=== PATIENT | male | born 1985 | race African-American/Black ===

== ENCOUNTER 2019-01-04 13:02 | Inpatient (IN) ==
[2019-01-04] MEDS ORDERED: ALPRAZolam 0.5 MG TABLET PO ONE (13:41)
[2019-01-04 13:46] LABS: Bilirubin,Urine Negative (Negative); Blood,Urine Negative (Negative); Clarity,Urine Cloudy (Clear); Color,Urine Yellow (Yellow); Glucose,Urine (UA) Normal (Normal); Ketones,Urine Negative (Negative); Leukocyte Esterase,Urine Small (Negative); Nitrite,Urine Negative (Negative); Protein,Urine Negative (Neg-Trace); Specific Gravity,Urine 1.026 (1.010-1.025); Urobilinogen,Urine Normal (Normal)
[2019-01-04 13:48] LABS: Bacteria,Urine None Seen per hpf (None-Few); Hyaline Casts,Urine Few per lpf (None-Few); Squamous Epithelial Cell,Urine Many per lpf (None-Few)
[2019-01-04 13:53] LABS: Basophils % 0.4 %; Eosinophils # 0.1 K/mcL (0.0-0.6); Eosinophils % 2.2 %; Hematocrit 46.4 % (37.5-50.1); Hemoglobin 15.6 g/dL (12.9-16.9); Immature Granulocytes % 0.2 % (0-4); Lymphocytes # 1.9 K/mcL (0.6-4.6); Lymphocytes % 33.6 %; Mean Corpuscular HGB Conc 33.6 g/dL (31.6-35.5); Mean Corpuscular Hemoglobin 30.4 pg (28.0-33.3); Mean Corpuscular Volume 90.3 fL (83.0-100.0); Mean Platelet Volume 9.5 fL (9.4-12.4); Monocytes # 0.4 K/mcL (0.0-1.3); Monocytes % 7.1 %; Neutrophils # 3.1 K/mcL (1.6-8.9); Platelet Count 225 K/mcL (140-400); Red Blood Count 5.14 M/mcL (4.19-5.50); Red Cell Distribution Width 11.9 % (11.5-14.5); Segmented Neutrophils % 56.5 %; White Blood Count 5.5 K/mcL (4.3-11.1)
[2019-01-04 13:57] LABS: Amphetamine Screen,Urine Negative ng/mL (Cutoff=1000); Barbiturate Screen,Urine Negative ng/mL (Cutoff=200); Benzodiazepines Screen,Urine Negative ng/mL (Cutoff=200); Cannabinoid Screen,Urine Negative ng/mL (Cutoff = 50); Cocaine Screen,Urine Negative ng/mL (Cutoff= 300); Opiate Screen,Urine Negative ng/mL (Cutoff=300); Phencyclidine Screen,Urine Negative ng/mL (Cutoff=25)
[2019-01-04 14:13] LABS: Acetaminophen < 10 mcg/mL (10-20); BUN/Creatinine Ratio 17 (6-26); Blood Urea Nitrogen 17 mg/dL (6-20); Calcium 9.8 mg/dL (8.6-10.3); Carbon Dioxide 27 mEq/L (23-29); Chloride 104 mEq/L (98-107); Ethanol < 10 mg/dL (Less than 10); Glucose 88 mg/dL (70-105); Osmolality,Calculated 291 (280-300); Potassium 3.9 mEq/L (3.5-5.1); Salicylate < 2.5 mg/dL (15.0-30.0); Sodium 140 mEq/L (136-145); eGFR For African Americans > 60 (> 60); eGFR For Non-African Americans > 60 (> 60)
[2019-01-04] MEDS ORDERED: Haloperidol Lactate 5 MG/ML VIAL IM PRN (16:29)
[2019-01-04] MEDS ORDERED: Mag Hydrox/Al Hydrox/Simeth 30 ML UDC PO PRN (16:29)
[2019-01-04] MEDS ORDERED: *HR* LORazepam 2 MG/ML VIAL IM PRN (16:29)
[2019-01-04] MEDS ORDERED: Acetaminophen 325 MG TABLET PO PRN (16:29)
[2019-01-04] MEDS ORDERED: *HR* LORazepam 1 MG TABLET PO PRN (16:29)
[2019-01-04] MEDS ORDERED: MOM Conc 10 ML UD.LIQ PO PRN (16:29)
[2019-01-04] MEDS: Nicotine 21 MG PATCH.TD24 TD SCH (17:55)
[2019-01-04] MEDS: hydrOXYzine pamoate 25 MG CAPSULE PO PRN ×2 (18:39→22:01)
[2019-01-04] MEDS: traZODone 50 MG TABLET PO PRN (22:01)
[2019-01-05] MEDS ORDERED: Lurasidone 20 MG TABLET PO SCH (09:00)
[2019-01-05] MEDS: Nicotine 21 MG PATCH.TD24 TD SCH (11:50)
[2019-01-05] MEDS: ALPRAZolam 0.5 MG TABLET PO PRN (19:40)
[2019-01-05] MEDS: hydrOXYzine pamoate 25 MG CAPSULE PO PRN (22:00)
[2019-01-05] MEDS: traZODone 50 MG TABLET PO PRN (22:00)
[2019-01-06] MEDS: Nicotine 21 MG PATCH.TD24 TD SCH (08:55)
[2019-01-06] MEDS: ALPRAZolam 0.5 MG TABLET PO PRN ×2 (10:15→22:02)
[2019-01-06] MEDS: traZODone 50 MG TABLET PO PRN (22:02)
[2019-01-07] MEDS: Nicotine 21 MG PATCH.TD24 TD SCH (09:01)
[2019-01-07 09:44] VITALS: BP 117/82
== END 2019-01-07 10:42 | disposition home or self-care (01) | DRG 753 ==
LOC: EMEROOARM 13:02 → 1ANU 16:10 → SUATTDRO 16:10 → 1ANU 16:20
PROVIDERS: ADMIT Psychiatry & Neurology Psychiatry; ATTEND Psychiatry & Neurology Psychiatry